=== PATIENT | male | born 1965 | race Two or more races ===

== ENCOUNTER → 2019-05-02 | Outpatient (CLI) | payer OTHER | END | disposition home or self-care (01) | LOC: SPEC 19:39 | PROVIDERS: ATTEND Family Medicine | DX: I10 Essential (primary) hypertension (principal); F60.9 Personality disorder, unspecified; F10.10 Alcohol abuse, uncomplicated; F19.10 Other psychoactive substance abuse, uncomplicated; Z87.898 Personal history of other specified conditions | CPT/HCPCS: 36415; 84484 ==